=== PATIENT | female | born 1975 | race Caucasian/White ===

== ENCOUNTER 2022-12-11 15:19 | Outpatient (REF) | payer OTHER, SELFPAY ==
[2022-12-12 04:41] LABS: HBS Num1 40.57 mIU/mL (0-7.99); ~Hepatitis B Surface Antibody REACTIVE (Nonreactive)
[2022-12-12 10:09] LABS: Rubella IgG Antibody 4.65 Index
[2022-12-13 15:48] LABS: TS Negative Control Passed; TS Panel A 3; TS Panel B 0; TS Positive Control Passed; TSpotTB Negative (Negative)
== END 2022-12-11 15:20 | disposition home or self-care (01) ==
LOC: HO.LNP 15:19
PROVIDERS: Visit Provider Internal Medicine
DX: Z02.1 Encounter for pre-employment examination (principal)
CPT/HCPCS: 86481; 86706; 86735; 86762; 86765; 86787